=== PATIENT | female | born 1990 | race Asian ===

== ENCOUNTER 2019-03-02 01:59 | Emergency (ER) | payer SELFPAY ==
[~2019-03-02] VITALS: Ht 165.1 cm; Wt 52.2 kg
[2019-03-02 04:10] LABS: UA SPECIFIC GRAVITY <=1.005 (1.005-1.035); microscopic required? YES; urine erythrocyte 1+ (NEGATIVE)
[2019-03-02 05:10] VITALS: BP 98/62
== END 2019-03-02 05:10 | disposition home or self-care (01) ==
LOC: ED 01:59
PROVIDERS: Emergency Medicine
DX: R50.9 Fever, unspecified (principal); M79.10 Myalgia, unspecified site; R11.10 Vomiting, unspecified; J02.9 Acute pharyngitis, unspecified; J45.909 Unspecified asthma, uncomplicated

== ENCOUNTER 2019-03-02 21:48 | Emergency (ER) | payer MEDICAID ==
[~2019-03-02] VITALS: Ht 165.1 cm; Wt 51.7 kg
[2019-03-02 21:52] VITALS: Ht 165.1 cm; Wt 51.7 kg
[2019-03-03 01:18] LABS: BASOPHIL % 0.3 % (0-2); PLATELET COUNT 250 x10^3mcL (130-400); RED CELL DISTRIBUTION WIDTH 14.9 % (11.5-14.5)
[2019-03-03 01:25] LABS: CALCIUM 8.1 mg/dL (8.5-10.1); CARBON DIOXIDE 25.6 mmol/L (21-32); CHLORIDE SERUM 104 mmol/L (98-107); CREATININE SERUM 0.9 mg/dL (0.6-1.0); GFR1 > 60 mL/min; GLUCOSE SERUM 101 mg/dL (74-106); POTASSIUM SERUM 3.2 mmol/L (3.5-5.1); SODIUM SERUM 136 mmol/L (136-145)
[2019-03-03 01:34] LABS: ALBUMIN 3.8 g/dL (3.4-5.0); ALKALINE PHOSPHATASE 67 U/L (46-116); ALT/SGPT 54 U/L (14-59); AMYLASE 47 U/L (25-115); AST/SGOT 53 U/L (15-37); BILIRUBIN TOTAL 0.73 mg/dL (0.20-1.00); LIPASE 70 IU/L (73-393); TOTAL PROTEIN, SERUM 7.9 g/dL (6.4-8.2)
[2019-03-03 04:51] LABS: UA SPECIFIC GRAVITY <=1.005 (1.005-1.035); microscopic required? YES; urine erythrocyte TRACE (NEGATIVE)
[2019-03-03 07:26] VITALS: BP 95/49
== END 2019-03-03 07:26 | disposition home or self-care (01) ==
LOC: ED 21:48
PROVIDERS: Emergency Medicine
DX: N12 Tubulo-interstitial nephritis, not specified as acute or chronic (principal); J45.909 Unspecified asthma, uncomplicated
CPT/HCPCS: J0696; J2270; J2405; J7030; J7060

== ENCOUNTER 2019-03-03 20:15 | Emergency (ER) | payer MEDICAID ==
[~2019-03-03] VITALS: Ht 165.1 cm; Wt 53.5 kg
[2019-03-03 20:25] VITALS: BP 93/56; Ht 165.1 cm; Wt 53.5 kg
== END 2019-03-03 21:35 | disposition left against medical advice (07) ==
LOC: ED 20:15
DX: Z53.21 Procedure and treatment not carried out due to patient leaving prior to being seen by health care provider (principal)